=== PATIENT | female | born 1985 | race American Indian/Alaskan Native ===

== ENCOUNTER 2018-04-18 16:18 | Emergency (ER) | payer SELFPAY ==
[2018-04-18 16:34] VITALS: BMI 46.2
[2018-04-18 16:38] VITALS: RESP 18; O2SAT 100
[2018-04-18 18:09] LABS: BASO % 0.7 % (0.0-2.0); EOS # 0.1 K/uL (0.0-0.7); EOS % 1.9 % (0.0-4.0); HEMOGLOBIN 11.5 g/dL (11.0-16.0); LYMPH # 1.6 K/uL (1.0-4.3); LYMPH % 24.9 % (20.0-40.0); MEAN CORPUSCULAR HGB CONC 33.8 g/dL (33.0-37.0); MEAN PLATELET VOLUME 7.6 fL (7.2-11.7); MONO % 14.6 % (0.0-10.0); NEUT # 3.8 K/uL (1.8-7.0); NEUT % 57.9 % (50.0-75.0); NRBC % 0.1 % (0.0-2.0); RBC 3.96 Mil/uL (3.80-5.20); RED CELL DISTRIBUTION WIDTH 15.3 % (11.5-14.5); WHITE BLOOD COUNT 6.6 K/uL (4.8-10.8)
--- NOTE | 2018-04-18 18:42 | C.PDOC ---
History Of Present Illness <Francisco Javier Wilkes - Last Filed: 04/18/18 20:13> <Marino Pickett DO - Last Filed: 04/18/18 23:56> Patient is a 33 year old female with history of asthma who reports for 2 day history of rash between her breasts with redness, stinging and drainage. She also complains of 2 day history of bilateral lower extremity swelling, pain extending from her feet up her calves that started 2 to 3 days ago. She states that her feet are painful and she cannot walk. She denies recent travel, OCP use , recent surgeries. She denies fever, chills, headache, dizziness, chest pain, shortness of breath, abdominal pain, nausea, vomiting, diarrhea, constipation. (Francisco Javier Wilkes) <Francisco Javier Wilkes - Last Filed: 04/18/18 20:13> <Marino Pickett DO - Last Filed: 04/18/18 23:56> Chief Complaint (Nursing): Lower Extremity Problem/Injury Past Medical History - Medical History PMH: Asthma Surgical History: Tonsillectomy Family History: States: Unknown Family Hx - Social History Hx Alcohol Use: No Hx Substance Use: Yes <Francisco Javier Wilkes - Last Filed: 04/18/18 20:13> Vital Signs: Last Vital Signs Temp 98.4 F 04/18/18 20:15 Pulse 90 04/18/18 20:15 Resp 18 04/18/18 20:15 BP 135/80 04/18/18 20:15 Pulse Ox 100 04/18/18 20:19 Review Of Systems Constitutional: Negative for: Fever, Chills Cardiovascular: Positive for: Edema. Negative for: Chest Pain, Palpitations, Light Headedness Respiratory: Negative for: Shortness of Breath Gastrointestinal: Negative for: Nausea, Vomiting, Abdominal Pain Skin: Positive for: Rash <Francisco Javier Wilkes - Last Filed: 04/18/18 20:13> Physical Exam - Physical Exam Appears: Well, No Acute Distress Skin: Rash (Area between breasts erythematous, minimally tender to touch, with some clear drainage. No edema or induration or fluctuance noted. ) Head: Atraumatic, Normacephalic Cardiovascular: Rhythm Regular Respiratory: Normal Breath Sounds, No Rales, No Rhonchi, No Stridor, No Wheezing Gastrointestinal/Abdominal: Soft, No Tenderness, No Distention, No Guarding, No Rebound, No Hernia Extremity: Pedal Edema (Bilateral pedal edema no active drainage. Stasis changes to lower extremities bilaterally. ), No Calf Tenderness, Capillary Refill <Francisco Javier Wilkes - Last Filed: 04/18/18 20:13> ED Course And Treatment - Laboratory Results Result Diagrams: 04/18/18 18:06 04/18/18 18:06 O2 Sat by Pulse Oximetry: 100 <Francisco Javier Wilkes - Last Filed: 04/18/18 20:13> - Laboratory Results Result Diagrams: 04/18/18 18:06 04/18/18 18:06 <Marino Pickett DO - Last Filed: 04/18/18 23:56> Medical Decision Making <Francisco Javier Wilkes - Last Filed: 04/18/18 20:13> <Marino Pickett DO - Last Filed: 04/18/18 23:56> Medical Decision Making: CBC, CMP within normal limits. BNP 77.9 1730 On repeat evaluation, patient is sleeping in bed and in no acute distress. (Francisco Javier Wilkes) Disposition - Disposition Disposition Time: 20:10 <Francisco Javier Wilkes - Last Filed: 04/18/18 20:13> - Disposition Disposition Time: 19:00 <Marino Pickett DO - Last Filed: 04/18/18 23:56> - Disposition Referrals: [facility] [Outside] at [facility] [Outside] Disposition: HOME/ ROUTINE Condition: STABLE Additional Instructions: DARIEL ENGLISH, thank you for letting us take care of you today. The emergency medical care you received today was directed at your acute symptoms. If you were prescribed any medication, please fill it and take as directed. It may take several days for your symptoms to resolve. Return to the Emergency Department if your symptoms worsen, do not improve, or if you have any other problems. Please contact your doctor or call one of the physicians/clinics you have been referred to that are listed on the Patient Visit Information form that is included in your discharge packet. Bring any paperwork you were given at discharge with you along with any medications you are taking to your follow up visit. Our treatment cannot replace ongoing medical care by a primary care provider outside of the emergency department. Thank you for allowing the [facility] team to be part of your care today. Follow up with the clinic next week for re-evaluation and further management. 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 / has examined the patient and agrees with the treatment plan. <Marino Pickett DO - Last Filed: 04/18/18 23:56>
[2018-04-18 18:49] LABS: ALB/GLOB RATIO 1.1 (1.0-2.1); ALBUMIN 4.1 g/dL (3.5-5.0); ALT/SGPT 35 U/L (9-52); AST/SGOT 30 U/L (14-36); BLOOD UREA NITROGEN 13 mg/dL (7-17); CALCIUM 8.9 mg/dl (8.6-10.4); GFR NON-AFRICAN AMERICAN > 60
[2018-04-18 18:57] LABS: B-TYPE NATRIURETIC PEPTIDE 77.9 pg/mL (0-450)
[2018-04-18 20:16] VITALS: BP 135/80; PULSE 90; TEMP 98.4
== END 2018-04-18 20:42 | disposition home or self-care (01) ==
LOC: C.ER 16:18
DX: L03.90 Cellulitis, unspecified (principal)

== ENCOUNTER 2018-04-20 00:15 | Emergency (ER) | payer SELFPAY ==
[2018-04-20 00:16] VITALS: BMI 46.2
[2018-04-20 00:28] VITALS: PULSE 80
[2018-04-20] MEDS ORDERED: Clotrimazole 1% Cream 15 GM TUBE TOP STA (01:36)
--- NOTE | 2018-04-20 03:16 | C.PDOC ---
History Of Present Illness 33-year-old female presents to the ED requesting a place to sleep for the night. Patient was evaluated in this ED yesterday for complaints of leg swelling. Patient was advised to rest and elevate her legs, but states she is on her feet all day and has no way to elevate her legs. Patient also complains of a rash under her breasts which has not improved. Patient has been unable to fill her medications due to lack of insurance coverage. Patient denies fever, chills, shortness of breath. Time Seen by Provider: 04/20/18 01:01 Chief Complaint (Nursing): Abnormal Skin Integrity History Per: Patient History/Exam Limitations: no limitations Onset/Duration Of Symptoms: Hrs Current Symptoms Are (Timing): Still Present Additional History Per: Patient Past Medical History Reviewed: Historical Data, Nursing Documentation, Vital Signs Vital Signs: Last Vital Signs Temp 97.9 F 04/20/18 00:24 Pulse 80 04/20/18 00:24 Resp 16 04/20/18 00:24 BP 124/85 04/20/18 00:24 Pulse Ox 98 04/20/18 05:10 - Medical History PMH: Asthma, Deep Vein Thrombosis Surgical History: Tonsillectomy Family History: States: Unknown Family Hx - Social History Hx Alcohol Use: No Hx Substance Use: Yes Review Of Systems Constitutional: Negative for: Fever, Chills Respiratory: Negative for: Shortness of Breath Skin: Positive for: Other (rash to breast region, leg swelling ) Physical Exam - Physical Exam Appears: Non-toxic, No Acute Distress Skin: Warm, Dry, Other (well-demarcated rash below breastline and between breast space consistent with fungal rash) Head: Atraumatic, Normacephalic Eye(s): bilateral: Normal Inspection, PERRL Oral Mucosa: Moist Respiratory: Normal Breath Sounds, No Rales, No Wheezing Extremity: Normal ROM, Pedal Edema (bilaterally ), No Calf Tenderness, Capillary Refill, No Other (cellulitis ) Pulses: Left Dorsalis Pedis: Normal, Right Dorsalis Pedis: Normal Neurological/Psych: Oriented x3, Normal Speech, Normal Cognition Gait: Steady ED Course And Treatment O2 Sat by Pulse Oximetry: 98 (on RA) Pulse Ox Interpretation: Normal Progress Note: Lotrimin cream administered and remainder given to pt. pt is requesting to stay a few hours to rest. On re-examination, patient is resting comfortably, showing no signs of distress and is stable for discharge with Lotrimin cream. Patient is advised to follow up with clinic/PMD within 1-2 days for further evaluation. Advised to return to the ED if symptoms persist or worsen. 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 - Scribe Statement The provider has reviewed the documentation as recorded by the Scribe (Halle Velásquez) All medical record entries made by the Scribe were at my direction and personally dictated by me. I have reviewed the chart and agree that the record accurately reflects my personal performance of the history, physical exam, medical decision making, and the department course for this patient. I have also personally directed, reviewed, and agree with the discharge instructions and disposition.
[2018-04-20 06:44] VITALS: BP 140/80; RESP 20; TEMP 98; O2SAT 100
== END 2018-04-20 05:30 | disposition home or self-care (01) ==
LOC: C.ER 00:15
DX: R60.9 Edema, unspecified (principal); R21 Rash and other nonspecific skin eruption

== ENCOUNTER 2018-05-09 15:42 | Emergency (ER) | payer SELFPAY ==
[2018-05-09 15:42] VITALS: BMI 46.2
[2018-05-09 15:59] VITALS: BP 108/72; PULSE 104; RESP 18; TEMP 98.7; O2SAT 100
--- NOTE | 2018-05-09 16:55 | C.PDOC ---
History Of Present Illness 33 y/o homeless female with PMHx of alcohol abuse presents to the ED requesting detox. States she was recently kicked out [facility] and is interested in detox for the weekend. Otherwise she denies any withdrawal symptoms. No suicidal or homicidal ideation. Time Seen by Provider: 05/09/18 16:39 Chief Complaint (Nursing): Medical Clearance History Per: Patient History/Exam Limitations: no limitations Onset/Duration Of Symptoms: Days Current Symptoms Are (Timing): Still Present Past Medical History Reviewed: Historical Data, Nursing Documentation, Vital Signs Vital Signs: Last Vital Signs Temp 98.7 F 05/09/18 15:51 Pulse 104 H 05/09/18 15:51 Resp 18 05/09/18 17:09 BP 108/72 05/09/18 15:51 Pulse Ox 100 05/09/18 17:58 - Medical History PMH: Asthma, Deep Vein Thrombosis Surgical History: Tonsillectomy Family History: States: Unknown Family Hx - Social History Hx Alcohol Use: No Hx Substance Use: Yes - Immunization History Hx Tetanus Toxoid Vaccination: No Hx Influenza Vaccination: No Hx Pneumococcal Vaccination: No Review Of Systems Except As Marked, All Systems Reviewed And Found Negative. Psych: Positive for: Other (alcohol abuse). Negative for: Suicidal ideation, Withdrawal Physical Exam - Physical Exam Appears: Non-toxic, No Acute Distress, Other (No alcohol on breath) Skin: Normal Color, Warm, Dry Head: Atraumatic, Normacephalic Eye(s): bilateral: Normal Inspection, PERRL, EOMI Neck: Normal ROM Chest: Symmetrical Cardiovascular: Rhythm Regular, No Murmur Respiratory: Normal Breath Sounds, No Accessory Muscle Use Gastrointestinal/Abdominal: Soft, No Tenderness, No Distention Extremity: Bilateral: Atraumatic, Normal Color And Temperature Neurological/Psych: Oriented x3, Normal Speech, Other (No tremor) Gait: Steady ED Course And Treatment O2 Sat by Pulse Oximetry: 100 (RA) Pulse Ox Interpretation: Normal Medical Decision Making Medical Decision Making: homless, h/o alcohol abuse kicked out of [facility], no detox beds available today has info for local detox and [facility] programs. Disposition Doctor Will See Patient In The: Office Counseled Patient/Family Regarding: Studies Performed, Diagnosis - Disposition Referrals: [facility] [Outside] [facility] [Outside] [facility] [Outside] [facility] [Outside] [facility] [Outside] Disposition: HOME/ ROUTINE Disposition Time: 16:54 Condition: GOOD Additional Instructions: continue to seek regular [facility] placement and local detox programs information given Instructions: Alcohol Abuse and Alcoholism (DC), Effects of Alcohol on Your Health Forms: [employer] (Venezuelan) - Clinical Impression Clinical Impression: Homeless single person, Alcohol abuse - Scribe Statement The provider has reviewed the documentation as recorded by the Scribe (Arminda Chadwick) Provider Attestation: All medical record entries made by the Scribe were at my direction and personally dictated by me. I have reviewed the chart and agree that the record accurately reflects my personal performance of the history, physical exam, medical decision making, and the department course for this patient. I have also personally directed, reviewed, and agree with the discharge instructions and disposition.
== END 2018-05-09 17:09 | disposition home or self-care (01) ==
LOC: C.ER 15:42
DX: F10.10 Alcohol abuse, uncomplicated (principal); Y90.9 Presence of alcohol in blood, level not specified; Z59.0 Homelessness